=== PATIENT | male | born 1980 | race Two or more races ===

== ENCOUNTER 2019-09-12 19:35 | Emergency (ER) | payer SELFPAY ==
[~2019-09-12] VITALS: Ht 165.1 cm; Wt 72.6 kg
[~2019-09-12 19:35] MED LIST: ACETAMINOPHEN500 M3 ORAL; GUAIFENESIN-CO118 M1 PO; NKM; ONDANSETRON ODT4 MG ORAL
[2019-09-12 20:00] VITALS: BP 127/82
[2019-09-12] MEDS ORDERED: HYDROcodone/Acetamin 5/325 tab ORAL ONE (20:15)
--- NOTE | 2019-09-12 20:20 | Emergency Room Report ---
History of Present Illness General Chief Complaint: Lower Extremity Injury Source: Patient Present Illness HPI 39-year-old male presents to the emergency department complaining of 8 out of 10 severity pain localized to the lateral aspect of the right ankle since this afternoon. Patient reports that he fell down off of the ladder and rolled his ankle. Patient estimates thought to be less than 6 feet. Patient denies hitting his head or having a loss of consciousness. Patient denies midline neck or back pain. Patient denies heel pain. Patient reports he has pain with weightbearing. He reports swelling he denies open wounds or bleeding. Denies numbness tingling or loss of sensation or gross motor movements of the extremities, incontinence of bowel or bladder. Denies CP, Palpitations, LOC, AMS , dizziness, Changes in Vision, weakness or a sudden severe headache. Allergies: Coded Allergies: No Known Allergies (Unverified , 04/23/12) COVID-19 Screening Contact w/high risk pt: No Experienced COVID-19 symptoms?: No COVID-19 Testing performed AUTOMATION DRIVER: No Patient History Past Medical History: see triage record Past Surgical History: none Pertinent Family History: none Reviewed Nursing Documentation: PMH: Agreed; PSxH: Agreed Nursing Documentation-PMH Past Medical History: No Stated History Review of Systems All Other Systems: negative except mentioned in HPI Physical Exam Vital Signs Date Time Temp Pulse Resp B/P (MAP) Pulse Ox O2 Delivery O2 Flow Rate FiO2 09/12/19 19:51 98.8 87 19 138/97 (111) 100 Room Air Sp02 EP Interpretation: reviewed, normal General Appearance: no apparent distress, alert, GCS 15, non-toxic Head: normocephalic, atraumatic Eyes: bilateral eye normal inspection, bilateral eye PERRL ENT: hearing grossly normal, normal voice Neck: full range of motion Respiratory: lungs clear, normal breath sounds, speaking full sentences Cardiovascular #1: regular rate, rhythm, normal capillary refill Cardiovascular #2: 2+ dorsalis pedis (R) Musculoskeletal: back normal, normal range of motion, gait/station normal, tender - lateral aspect of the right ankle, swelling - lateral right ankle Neurologic: alert, motor strength/tone normal, oriented x3, sensory intact, responsive, speech normal Psychiatric: judgement/insight normal Skin: Ecchymosis/Bruising - lateral aspect of the right ankle Medical Decision Making PA Attestation Dr. Rojas is my supervising Physician whom patient management has been discussed with. Diagnostic Impression: Primary Impression: Right ankle sprain Qualified Codes: S93.401A - Sprain of unspecified ligament of right ankle, initial encounter ER Course 39-year-old male presents to the emergency department complaining of 8 out of 10 severity pain localized to the lateral aspect of the right ankle since this afternoon. Patient reports that he fell down off of the ladder and rolled his ankle. Patient estimates thought to be less than 6 feet. Patient denies hitting his head or having a loss of consciousness. Patient denies midline neck or back pain. Patient denies heel pain. Patient reports he has pain with weightbearing. He reports swelling he denies open wounds or bleeding. Denies numbness tingling or loss of sensation or gross motor movements of the extremities, incontinence of bowel or bladder. Denies CP, Palpitations, LOC, AMS , dizziness, Changes in Vision, weakness or a sudden severe headache. Ddx considered but are not limited to fracture, D/L, sprain/strain Vital signs: are WNL, pt. is afebrile H&PE are most consistent with sprain ORDERS: Xray Right ankle 3 views - negative for acute fracture, d/l or soft tissue injury. ED INTERVENTIONS: - 5mg [place] PO -Kin wrap applied to the right ankle by technician trainee. Pt. remains neurovascularly intact. -Patient is provided with crutches and instructed on their use DISCHARGE: At this time pt. is stable for d/c to home. Will provide printed patient care instructions, and any necessary prescriptions. Care plan and follow up instructions have been discussed with the patient prior to discharge. Other X-Ray Diagnostic Results Other X-Ray Diagnostic Results : X-Ray ordered: Right ankle # of Views/Limited Vs Complete: 3 View Indication: Pain EP Interpretation: Yes PA Xray: Interpretation reviewed, by supervising MD, and agrees with findings. Interpretation: no dislocation, no fractures, other - soft tissue swelling. Impression: No acute disease Electronically Signed by: Lacy Garza PA-C Last Vital Signs Date Time Temp Pulse Resp B/P (MAP) Pulse Ox O2 Delivery O2 Flow Rate FiO2 09/12/19 19:51 98.8 87 19 138/97 (111) 100 Room Air Status: improved Disposition: HOME, SELF-CARE Condition: Stable Referrals: [facility] + [facility] Patient Instructions: Ankle Sprain Additional Instructions: Take medications as directed. Follow up with an FLOOR COVERING PRINTER in 3-5 days, even if your symptoms have resolved. If symptoms persist MRI may be required at the discretion of your PCP or Ortho Specialist. --Please review list of primary care clinics, if you do not already have a primary care provider who can give you an Orthopedic Referral. Return sooner to ED if new symptoms occur, or current symptoms become worse. - Please note that this Emergency Department Report was dictated using bewarketart historian technology software, occasionally this can lead to erroneous entry secondary to interpretation by the dictation equipment. Lacy Garza Sep 12, 2019 20:20
[2019-09-12 21:00] VITALS: BP 133/84
[2019-09-12] MEDS ORDERED: IBUPROFEN600 M1 ORAL (21:09)
[2019-09-12 21:15] VITALS: BP 127/82
--- NOTE | 2019-09-13 15:51 | Diagnostic Imaging Report ---
Indication: Right ankle pain Technique: 3 views of the right ankle Comparison: none Findings: No acute fractures. No dislocations. The joint spaces are preserved. Impression: Negative
== END 2019-09-12 21:15 | disposition home or self-care (01) ==
LOC: EMR 21:15
DX: S93.401A Sprain of unspecified ligament of right ankle, initial encounter (principal); W11.XXXA Fall on and from ladder, initial encounter; Y92.9 Unspecified place or not applicable
CPT/HCPCS: 99283

== ENCOUNTER 2019-09-21 13:02 | Emergency (ER) | payer SELFPAY ==
[~2019-09-21] VITALS: Ht 152.4 cm; Wt 78.0 kg
[~2019-09-21 13:02] MED LIST changes: +IBUPROFEN600 M1 ORAL
[2019-09-21 13:28] VITALS: BP 96/63
--- NOTE | 2019-09-21 13:29 | NUR ---
ED Nurse Note:pt. came from home with c/o headache and SOB, reported testing covid positive 2 days ago, O@ sats 97% RA, placed in isolation room
[2019-09-21] MEDS ORDERED: ZITHROMAX250 MG ORAL (14:07)
[2019-09-21] MEDS ORDERED: PROAIR HFA8.5 GM INH (14:07)
[2019-09-21 14:10] VITALS: BP 102/66
--- NOTE | 2019-09-21 14:10 | NUR ---
ED Nurse Note: Pt cleared by health care Provider for discharge. DC instructions/prescription was given and explained to pt and verbalized understanding of teachings. All medical deviecs such as ID band removed. Pt is AAO x4, ambulatory and left with all personal belongings.
--- NOTE | 2019-09-21 14:49 | Emergency Room Report ---
History of Present Illness General Chief Complaint: Dyspnea/Respdistress Source: Patient Present Illness HPI Patient presents emergency department today with complaint of several days of fever cough congestion and some shortness of breath. Patient states that he tested positive for coronavirus yesterday. Therefore he came for further evaluation. He is able to ambulate difficulty. Denies any syncope. Denies any nausea vomiting. No other complaints are noted patient noted to be moderate to severe. No other modifying factors. No other associated signs and symptoms. No other complaints were noted. Allergies: Coded Allergies: No Known Allergies (Unverified , 04/23/12) COVID-19 Screening Contact w/high risk pt: No Experienced COVID-19 symptoms?: Yes COVID-19 Testing performed DECORATING INSPECTOR: No Patient History Past Medical History: none Past Surgical History: none Pertinent Family History: none Social History: Denies: smoking, alcohol use, drug use Reviewed Nursing Documentation: PMH: Agreed; PSxH: Agreed Nursing Documentation-PMH Past Medical History: No Stated History Review of Systems All Other Systems: negative except mentioned in HPI Physical Exam Vital Signs Date Time Temp Pulse Resp B/P (MAP) Pulse Ox O2 Delivery O2 Flow Rate FiO2 09/21/19 12:51 99.1 80 24 96/63 (74) 97 Room Air Sp02 EP Interpretation: reviewed, normal General Appearance: normal inspection, well appearing, no apparent distress, alert Head: atraumatic Eyes: bilateral eye normal inspection ENT: normal ENT inspection, hearing grossly normal, normal voice Neck: normal inspection, full range of motion, supple, no bony tend Respiratory: normal inspection, lungs clear, normal breath sounds, no respiratory distress, no retraction, no wheezing Cardiovascular #1: regular rate, rhythm, no edema Gastrointestinal: normal inspection, normal bowel sounds, non tender, soft, no guarding, no hernia Genitourinary: no CVA tenderness Musculoskeletal: normal inspection, back normal, normal range of motion Neurologic: alert, responsive, speech normal, normal inspection Psychiatric: normal inspection, judgement/insight normal, mood/affect normal Skin: no rash Medical Decision Making Diagnostic Impression: Primary Impression: COVID-19 Additional Impression: Dyspnea ER Course Patient presents emergency department today complaint shortness of breath. Differential diagnosis include pneumonia, bronchitis, asthma, COPD, but have not worked a shift just name a few. Given the severity of the patient's presentation I felt this is a highly complex patient. Patient's chest x-ray shows mild infiltrates patient is not hypoxic and ambulate without difficulty. Therefore patient did not feel that the criteria for admission for did not meet the criteria for steroid use. Will start patient on albuterol. In the event that patient has also community-acquired pneumonia given the chest x-ray will start patient on Zithromax. Patient is advised to follow up with primary doctor in 2-3 days and return the emergency room for any worsening symptoms and as needed. Chest X-Ray Diagnostic Results Chest X-Ray Diagnostic Results : Chest X-Ray Ordered: Yes # of Views/Limited/Complete: 1 View Indication: Shortness of Breath EP Interpretation: Yes Interpretation: no effusion, no pneumothorax, other - Increased pulmonary markings bilateral lower lung romano. Impression: Other - Pneumonia Electronically Signed by: Electronically signed by Sánchez Mckoy MD Last Vital Signs Date Time Temp Pulse Resp B/P (MAP) Pulse Ox O2 Delivery O2 Flow Rate FiO2 09/21/19 14:10 99.2 82 20 102/66 96 Room Air Disposition: HOME, SELF-CARE Condition: Stable Scripts Azithromycin* (ZITHROMAX*) 250 Mg Tablet 250 MG ORAL DAILY, #6 TAB 0 Refills Take two tables once daily for 1 day, then one tablet once daily for 4 days. Prov: Sánchez Mckoy MD 09/21/19 Albuterol Sulfate* (PROAIR HFA*) 8.5 Gm Hfa.aer.ad 2 PUFFS INH Q6H, #8.5 GM 0 Refills Prov: Sánchez Mckoy MD 09/21/19 Referrals: NOT CHOSEN IPA/,REFERRING (PCP) Patient Instructions: Shortness of Breath, [id number], Acute Bronchitis Sánchez Mckoy MD Sep 21, 2019 14:49
--- NOTE | 2019-09-21 14:53 | Diagnostic Imaging Report ---
Indication: Cough Technique: One view of the chest Comparison: none Findings: There is bilateral interstitial and airspace disease, with a mid and lower lung and peripheral prominence and a peribronchovascular distribution. The heart size is normal. The pleural spaces are clear. Impression: Bilateral infiltrates, likely pneumonia, quite possibly viral. Correlate with clinical findings
== END 2019-09-21 14:20 | disposition home or self-care (01) ==
LOC: EMR 14:00
DX: U07.1 COVID-19 (principal); R06.00 Dyspnea, unspecified
CPT/HCPCS: 71045; 99283